=== PATIENT | male | born 1950 | race Caucasian/White ===

== ENCOUNTER 2018-08-30 05:10 | Emergency (ER) | payer MEDICARE, OTHER ==
[~2018-08-30] VITALS: Ht 170.2 cm; Wt 88.6 kg
[~2018-08-30 05:10] MED LIST: ALEVE 220MG220 MG PO; CELECOXIB200 MG PO; COLACE 100100 MG/CAP PO; FLOMAX 0.40.4 MG/CAP PO; ICY HOT TP; LODINE XL500 MG PO; MEDROL4 MG; MOBIC 7.5MG7.5 MG; NEXIUM 20MG20 MG; ONE DAILY 50 PL1 TAB PO; PERCOCET 325 MG1 TA2 PO; PLAQUENIL 200M200 MG; PREDNISONE1 MG; PRIL40 PO; RYZOLT100 MG; TRIXAICIN HP0.075% TP; [UNRECOGNIZED DRUG - OTHER] TP
[2018-08-30 05:16] VITALS: PULSE 71; TEMP 98.1
[2018-08-30] MEDS ORDERED: LIPITOR 10MG10 MG PO (05:33)
[2018-08-30] MEDS ORDERED: VOLTAREN 75 DR75 MG PO (05:34)
[2018-08-30] MEDS ORDERED: UROCIT-K 1010 MEQ PO (05:37)
[2018-08-30 05:51] LABS: BASO % 0.5 % (0.0-2.0); EOS # 0.2 (0.0-0.7); EOS % 3.2 % (0-4.0); GRAN # 4.3 (1.4-6.5); GRAN % 72.7 % (42.2-75.2); HEMATOCRIT 41.9 % (42.0-52.0); HEMOGLOBIN 13.8 g/dl (13.5-18.0); LYMPH # 0.7 (1.2-3.4); LYMPH % 12.5 % (20.0-51.0); MEAN CELL VOLUME 90 fl (80.0-100.0); MEAN CORPUSCULAR HEMOGLOBIN 30 pg (27.0-31.0); MEAN CORPUSCULAR HGB CONC 33 g/dl (33.0-37.0); MEAN PLATELET VOLUME 9.5 fl (7.4-10.4); MONO # 0.6 (0.1-0.6); MONO % 10.3 % (1.7-9.3); PLATELET COUNT 184 K/mm3 (130-400); RED BLOOD COUNT 4.66 M/mm3 (4.20-5.60); REDCELL DISTRIBUTION WIDTH-CV 14.2 % (11.5-14.5)
[2018-08-30 06:00] LABS: ALANINE AMINOTRANSFERASE 24 U/L (21-72); ALBUMIN 3.7 gm/dL (3.5-5.0); ALKALINE PHOSPHATASE 93 U/L (50-136); ANION GAP 12 mmol/L (7-16); AST,SGOT 21 U/L (15-37); BILIRUBIN,TOTAL 0.3 mg/dL (0.0-1.0); BLOOD UREA NITROGEN 21 mg/dL (9-20); CALCIUM 8.8 mg/dL (8.4-10.2); CARBON DIOXIDE 21 mmol/L (22-30); CHLORIDE 110 mmol/L (98-107); CREATININE, serum 0.81 (0.66-1.25); GLUCOSE 145 mg/dL (74-106); LIPASE 103 U/L (23-300); POTASSIUM 4.1 mmol/L (3.4-5.0); SODIUM 144 mmol/L (137-145); TOTAL PROTEIN 6.4 gm/dL (6.4-8.2)
[2018-08-30 06:11] LABS: TROPONIN-I < 0.012 ng/mL (0.000-0.035)
[2018-08-30 06:48] LABS: COLLECTION METHOD CLEAN CATCH
[2018-08-30 06:55] LABS: MUCOUS Present /lpf; PH 5 (5-8); SQUAMOUS EPITHELIAL 0-2 /hpf; URINE APPEARANCE Clear; URINE BACTERIA None Seen /hpf; URINE BILIRUBIN Negative (NEGATIVE); URINE BLOOD 1+ (NEGATIVE); URINE COLOR Yellow; URINE GLUCOSE Negative (NEGATIVE); URINE KETONE Negative (NEGATIVE); URINE LEUKOCYTE ESTERASE Negative (NEGATIVE); URINE NITRATE Negative (NEGATIVE); URINE PROTEIN(semi-quant) Negative (NEGATIVE); URINE RBC 0-2 /hpf; URINE UROBILINOGEN Negative (NEGATIVE)
[2018-08-30 07:49] VITALS: BP 117/77
== END 2018-08-30 07:56 | disposition home or self-care (01) ==
LOC: COL.ER 05:10
PROVIDERS: Emergency Medicine
DX: K21.9 Gastro-esophageal reflux disease without esophagitis (principal); M54.5 Low back pain; G89.29 Other chronic pain; E78.5 Hyperlipidemia, unspecified; Z79.1 Long term (current) use of non-steroidal anti-inflammatories (NSAID); Z87.442 Personal history of urinary calculi; Z87.19 Personal history of other diseases of the digestive system
CPT/HCPCS: Q9967